=== PATIENT | female | born 1985 | race Two or more races ===

== ENCOUNTER 2023-09-15 06:00 | Day surgery (SDC) | payer OTHER ==
[2023-09-13 12:21] LABS: URINE APPEARANCE Clear; URINE BILIRRUBIN Negative (NEGATIVE); URINE BLOOD Negative; URINE COLOR Yellow; URINE GLUCOSE Negative (NEGATIVE); URINE LEUKOCYTE Negative; URINE NITRATE Negative; URINE PROTEIN Negative (NEGATIVE); URINE UROBILINOGEN 0.2 E.U./dl
[2023-09-13 12:25] LABS: HEMATOCRIT 30.6 % (36.0-45.00); HEMOGLOBIN 9.5 g/dL (12.0-15.00); MEAN CORPUSCULAR HEMOGLOBIN 20.5 pg (27.00-32.0); MEAN CORPUSCULAR HGB CONC 31.1 g/dl (32.0-36.0); PLATELET COUNT 333 K/uL (150-450); RED BLOOD COUNT 4.63 M/uL (4.00-6.00); RED CELL DISTRIBUTION WIDTH 17.5 % (11.5-14.5)
[2023-09-13 12:25] LABS: URINE BACTERIA 1514.4 uL (0.0-1933); URINE RBC 5.3 uL (0.0-20.8); URINE WBC 30.9 uL (0.0-23.2)
[2023-09-13 12:42] LABS: PARTIAL THROMBOPLASTIN TIME 32.6 SECONDS (22.0-34.0); PROTHROMBIN TIME 10.5 SECONDS (9.0-11.5)
[2023-09-13 13:59] LABS: ALBUMIN 4.1 gm/dL (3.4-5.0); BILIRUBIN TOTAL 0.47 mg/dL (0.3-1.2); CALCIUM 9.3 mg/dL (8.5-10.1); CREATININE SERUM 0.65 mg/dL (0.55-1.02); GFR 103.13; GLOBULINA 3.4 G/DL (2.4-3.5); POTASSIUM 4.09 mEq/L (3.5-5.1); TOTAL PROTEIN 7.5 gm/dL (6.4-8.2); TSH 0.669 uIU/mL (0.358-3.74)
[~2023-09-15 06:00] MED LIST: ETODOLAC200 MG PO
[2023-09-15] MEDS ORDERED: CEFOXITIN SODIUM 2,000 MG VIAL IV ONE (12:57)
[2023-09-15] MEDS ORDERED: MORPHINE SULFATE 4 MG/ML VIAL IV PRN (15:15)
[2023-09-15] MEDS ORDERED: MORGIDOX100 MG PO (15:15)
[2023-09-15] MEDS ORDERED: PROMETHAZINE HCL 50 MG/ML AMPUL IM ONE (15:15)
[2023-09-15] MEDS ORDERED: NAPR500T14 PO (15:15)
== END 2023-09-15 18:15 | disposition home or self-care (01) ==
LOC: CIR.AMB 06:00
PROVIDERS: ATTEND Obstetrics & Gynecology
DX: D25.0 Submucous leiomyoma of uterus (principal); N84.0 Polyp of corpus uteri; N92.5 Other specified irregular menstruation